=== PATIENT | female | born 1990 | race Asian ===

== ENCOUNTER → 2016-02-25 | Outpatient (CLI) | payer OTHER ==
[~2016-02-25] MED LIST: OXYC-57 PO
[2016-02-27 14:15] LABS: QUANTIF TB AG-NIL <0.00 IU/ML
== END | disposition home or self-care (01) ==
LOC: C.LABSPEC 12:17
PROVIDERS: ATTEND Family Medicine
DX: Z11.3 Encounter for screening for infections with a predominantly sexual mode of transmission (principal); Z11.1 Encounter for screening for respiratory tuberculosis

== ENCOUNTER → 2016-05-06 | Day surgery (SDC) | payer OTHER ==
[2016-04-16 10:42] VITALS: Ht 154.9 cm; Wt 53.6 kg
[~2016-05-06] VITALS: Ht 154.9 cm; Wt 53.6 kg
[~2016-05-06] MED LIST changes: +ATROPINE SULFATE 0.1 MG/ML 5ML SYR IV PRN; +EpHEDrine SULFATE INJ 50 MG/ML AMP IV PRN; +FENTANYL CITRATE INJ 50 MCG/1 ML 2 ML VIAL IV PRN; +FENTANYL CITRATE INJ 50 MCG/1 ML 2 ML VIAL ONE; +IBUPROFEN 600 MG TAB PO PRN; +KETOROLAC TROMETHAMINE 30 MG/ML VIAL IV. PRN; +KETOROLAC TROMETHAMINE 30 MG/ML VIAL ONE; +LACTATED RINGER'S 1000ML 1,000 ML IV SCH; +LIDOCAINE HCL 2% 2 ML VIAL (20MG/ML) ONE; +LIDOCAINE/EPINEPHRINE 1% INJ 50 ML VIAL ONE; +MIDAZOLAM HCL 1 MG/ML 2ML VIAL ONE; +ONDANSETRON INJ 2 MG/ML 2 ML VIAL IV PRN; +OXYCODONE/ACETAMINOPHEN 5-325 TAB PO PRN; +PROMETHAZINE HCL INJ 25 MG in SODIUM CHLORIDE 0.9% 50ML 50 ML IV PRN; +PROPOFOL IV EMULSION 10 MG/ML 20 ML VIAL IV ONE; +SODIUM CHLORIDE 0.9% 1000ML 1,000 ML IV SCH
--- NOTE | 2016-05-06 11:09 | History & Physical Bridge - [place] ---
H&P Re-Evaluation Bridge Note: I have examined the patient, reviewed the History & Physical and in the interval since the performance of the History & Physical I have noted the following changes of clinical significance: No changes noted
--- NOTE | 2016-05-06 11:49 | Discharge Instructions ---
Discharge Instructions Date of Service May 06, 2016. Admission Reason for Admission: Abnoral Uterine Bleeding, Submucous Leiomyoma Discharge Discharge Diagnosis / Problem: endometrial fibroid Discharge Goals Goal(s): Routine recovery after surgery Activity Recommendations Activity Limitations: per Instructions/Follow-up section . Instructions / Follow-Up Instructions / Follow-Up ACTIVITY RECOMMENDATIONS: * Avoid tampons, douching, hot tubs, pools, and intercourse until bleeding has stopped. * May shower as usual. * No strenuous activity for 24-48 hours. After 24-48 hours, you may do anything you feel like doing (driving and sports are okay). SPECIAL CARE INSTRUCTIONS: Special Diet: * Mild nausea may occur in the immediate post-operative period. * Take clear liquids such as tea, cola or bouillon until all nausea has subsided; you may then resume your normal diet. Special Care: * Light bleeding and vaginal spotting can last from a few days to 3-4 weeks. Call your doctor if bleeding becomes heavier than the heaviest part of your period. * Check your temperature twice a day for one week. If it goes above 100.4 degrees Fahrenheit (38.0 Celsius), notify your doctor. * Call your doctor's office for an appointment for 6 weeks after your surgery. FOLLOW-UP VISIT: Call your doctor's office for an appointment for 6 weeks after your surgery. Current Hospital Diet Patient's current hospital diet: Discharge Diet Recommended Diet: Regular Diet Pending Studies Studies pending at discharge: no Medical Emergencies . Who to Call and When: Medical Emergencies: If at any time you feel your situation is an emergency, please call 911 immediately. . Non-Emergent Contact Non-Emergency issues call your: Primary Care Provider . . "Provider Documentation" section prepared by Ren Ruiz. VTE Core Measure Inpt VTE Proph given/why not?: Treatment not indicated
--- NOTE | 2016-05-06 11:52 | [facility] Post Operative Brief Note ---
Immediate Operative Summary Operative Date May 06, 2016. Pre-Operative Diagnosis Abnormal Uterine Bleeding, Submucous Leiomyoma Post-Operative Diagnosis Same Procedure(s) Performed Hysteroscopic Myomectomy Surgeon Dr. Ruiz Sand Cutter Surgeon(s) None Estimated Blood Loss Minimal Findings small benign IC fibroid Specimens A. Endometrial Mass Drains None Anesthesia General Complication(s) None Disposition Recovery Room / PACU
--- NOTE | 2016-05-06 12:01 | Medical Student: [facility] ---
Immediate Operative Summary Operative Date May 06, 2016. Pre-Operative Diagnosis Abnormal Uterine Bleeding; Submucosal Leiomyoma Post-Operative Diagnosis Same as Pre-op Procedure(s) Performed Hysteroscopy with Myomectomy Surgeon Dr. Ruiz Washtub Worker Surgeon(s) none Estimated Blood Loss minimal Findings Small intracavitary fibroid; both tubal ostia visualized Fluids (cc crystalloids) 550 mL Lactated Ringers Specimens Endometrial mass Drains none Anesthesia General with Laryngeal mask airway Complication(s) None Disposition Recovery Room / PACU
--- NOTE | 2016-05-06 12:30 | Anesthesia Progress Nt - [facility] ---
Anesthesia Post Op Note Date & Time May 06, 2016 at 12:30 Vital Signs Pain Intensity: 0 Vital Signs Past 12 Hours Date Time Temp Pulse Resp B/P Pulse Ox O2 Delivery O2 Flow Rate FiO2 05/06/16 11:59 36.7 52 12 85/50 100 Mask 6 05/06/16 11:06 36.7 71 16 94/61 98 Room Air Notes Mental Status: alert / awake / arousable, participated in evaluation Pt Amnestic to Procedure: Yes Nausea / Vomiting: adequately controlled Pain: adequately controlled Airway Patency, RR, SpO2: stable & adequate BP & HR: stable & adequate Hydration State: stable & adequate Anesthetic Complications: no major complications apparent
[2016-05-06 12:42] VITALS: TEMP 36.5
[2016-05-06 13:15] VITALS: BP 95/62; PULSE 66; O2SAT 98
--- NOTE | 2016-05-06 13:58 | OPERATIVE REPORT ---
DATE OF OPERATION: 05/06/2016 PREOPERATIVE DIAGNOSIS: Endometrial mass. POSTOPERATIVE DIAGNOSIS: Suspected endometrial fibroid. PROCEDURE: Hysteroscopic myomectomy. SURGEON: Dr. Ruiz. ESTIMATED BLOOD LOSS: Minimal. TOTAL LOSSES OF NORMAL SALINE: 110 mL. ANESTHETIC: General. COMPLICATIONS: None. DRAINS: None. DISPOSITION: Recovery room. DESCRIPTION OF PROCEDURE: Ms. Espinoza was given a general anesthetic, prepped and draped in dorsolithotomy position in [facility] cane stirru. Cervix examined and found to be normal and uterus was retroverted. No bladder was drained prior. Uterus was then carefully dilated starting with a #13 dilator and then progressing until a #25 dilator. Once the cervix was fully dilated, we used the MyoSure hysteroscope with normal saline as our base solution and we were able to visualize the cavity. Both tubal ostia were visualized. There was no sign of perforation. There was a fundal mass in the lower segment of the uterus anterior and left sided, approximately 1-2 cm. Appearance of fibroid, benign. Using the MyoSure, we then resected the mass without difficulty, operating the MyoSure only when I could see the actual blade in action and never blindly. Mass was resected down to the base of the endometrium. At the end of procedure, hemostasis was excellent. Instruments removed from the cervix and vagina. Sponge and instrument counts correct. I attest to the content of the Intraoperative Record and any orders documented therein. Any exceptio ns are noted below.
== END | disposition home or self-care (01) ==
LOC: X.SURG 10:44
PROVIDERS: ATTEND Obstetrics & Gynecology
DX: D25.0 Submucous leiomyoma of uterus (principal); N93.9 Abnormal uterine and vaginal bleeding, unspecified